=== PATIENT | male | born 1980 ===

== ENCOUNTER 2022-09-12 12:03 | Inpatient (IN) | payer MEDICAID, OTHER ==
[2022-09-12] MEDS ORDERED: ACETAMINOPHEN TAB 325 MG TAB PO PRN (12:52)
[2022-09-12] MEDS ORDERED: LORazepam 1 MG TAB PO PRN (12:52)
[2022-09-12] MEDS ORDERED: MAG HYDROX/AL HYDROX/SIMETH 30 ML CUP PO PRN (12:52)
[2022-09-12] MEDS ORDERED: MAGNESIUM HYDROXIDE 2,400 MG/10 ML CUP PO PRN (12:52)
[2022-09-12] MEDS ORDERED: LORazepam 2 MG/ML INJ IM PRN (12:55)
[2022-09-12] MEDS ORDERED: chlorproMAZINE 25 MG TAB PO PRN (12:55)
[2022-09-12] MEDS ORDERED: chlorproMAZINE 25 MG/ML 2 ML AMP IM PRN (12:56)
[2022-09-12] MEDS: DIVALPROEX 500 MG TABLET.DR PO SCH (20:57)
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
[2022-09-13] MEDS: amLODIPine 10 MG TAB PO SCH (08:29)
[2022-09-13] MEDS: DIVALPROEX 500 MG TABLET.DR PO SCH ×2 (08:29→20:11)
[2022-09-13] MEDS: NICOTINE 14MG/24HR PATCH TRANSDERM SCH (08:29)
[2022-09-13 08:37] LABS: ALT 28 U/L (4-49); AST 21 U/L (17-59); African American GFR (CKD) >90 (>60 ml/min/1.73 sqM); Albumin 4.5 g/dL (3.5-5.0); Alkaline Phosphatase 57 U/L (38-126); Anion Gap 9 mmol/L; Blood Urea Nitrogen 7 mg/dL (9-20); Calcium 9.5 mg/dL (8.4-10.2); Carbon Dioxide 31 mmol/L (22-30); Chloride 99 mmol/L (98-107); Glucose 98 mg/dL (74-99); Non-African American GFR(CKD) >90 (>60 ml/min/1.73 sqM); Potassium 3.8 mmol/L (3.5-5.1); Sodium 139 mmol/L (137-145); Total Bilirubin 0.8 mg/dL (0.2-1.3); Total Protein 7.3 g/dL (6.3-8.2)
[2022-09-13] MEDS ORDERED: ARIPiprazole 5 MG TAB PO STA (10:14)
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
[2022-09-14] MEDS ORDERED: DIVALPROEX 500 MG TABLET.DR PO SCH (09:00)
[2022-09-14] MEDS: amLODIPine 10 MG TAB PO SCH (11:02)
[2022-09-14] MEDS: ARIPiprazole 10 MG TAB PO SCH (11:02)
[2022-09-14] MEDS: NICOTINE 14MG/24HR PATCH TRANSDERM SCH (11:03)
--- NOTE | 2022-09-14 14:14 | P.PN ---
Subjective Progress Note Date: 09/14/22 Principal diagnosis: PAST PSYCHIATRIC HISTORY: Patient states that increasing diagnosed with a polar disorder and schizophrenia. Subjective: He recalls being previously prescribed Risperdal, Geodon, trazodone, and Latuda. His home medications currently include Depakote and Wellbutrin. He states that he has been on this regimen for the past 2 months. He reports that this is his sixth inpatient psychiatric admission. He reports that he was in a crisis residential unit in [place] approximately 3 weeks ago. He is open with [facility]. He reports one prior attempts at suicide by overdose months ago. The patient says that he has a pattern of taking his medicines/doing well/stopping his medicines/doing poorly. He recently had that Wellbutrin added and then he agitated. He says that he was not manic that he was depressed but the description sounds more like negative mixed chaya. He says he slept well last night appetite is good and he is feeling less agitated. Objective: He was staying in his room but got up and came and was cooperative no agitation no aggression he denied and did not evidence any hallucinations or delusions however his eye contact is down seems a little slow in his responses and wasn't always sure he was listening to me. Assessment: He is currently off the Wellbutrin which is a good idea because of prior agitated. He is on a combination of Abilify and Depakote. He weighs 260 pounds and should be about 2500 Depakote he is on a 1500 we will grab a level and see what his level is. We may need to increase that. He is on Abilify 10 and appears quite calm. Plan: Continue current medicine get a Depakote level and increase it if it's less than 80. Objective - Vital Signs Vital signs: Vital Signs Temp 98.2 F 09/13/22 06:29 Pulse 81 09/13/22 06:29 Resp 15 09/13/22 06:29 BP 121/65 09/13/22 06:29 Pulse Ox 98 09/12/22 16:57 FiO2 - Labs CBC & Chem 7: 09/13/22 07:31
[2022-09-14] MEDS: PANTOPRAZOLE 40 MG TABLET PO SCH (18:47)
[2022-09-14] MEDS: DIVALPROEX 500 MG TABLET.DR PO SCH (21:12)
[2022-09-15] MEDS: ATORVASTATIN 20 MG TAB PO SCH (08:54)
[2022-09-15] MEDS: PANTOPRAZOLE 40 MG TABLET PO SCH ×2 (08:54→17:49)
[2022-09-15] MEDS: ARIPiprazole 10 MG TAB PO SCH (08:54)
[2022-09-15] MEDS: amLODIPine 10 MG TAB PO SCH (08:54)
--- NOTE | 2022-09-15 08:59 | P.PN ---
Subjective Progress Note Date: 09/15/22 Principal diagnosis: PAST PSYCHIATRIC HISTORY:Bipolar disorder depressed nonpsychotic Subjective: He recalls being previously prescribed Risperdal, Geodon, trazodone, and Latuda. His home medications currently include Depakote and Wellbutrin. He states that he has been on this regimen for the past 2 months. He reports that this is his sixth inpatient psychiatric admission. He reports that he was in a crisis residential unit in [place] approximately 3 weeks ago. He is open with [facility]. He reports one prior attempts at suicide by overdose months ago. The patient says that he has a pattern of taking his medicines/doing well/stopping his medicines/doing poorly. He recently had that Wellbutrin added and then he agitated. He says that he was not manic that he was depressed but the description sounds more like negative mixed chaya. He says he slept well last night appetite is good and he is feeling less agitated. Objective: The the patient was out and about he still looks sleepy most slow and seems a little confused denies any psychotic symptoms no aggression says he slept well and his appetite is good. Assessment: Patient is tolerating medicines well which have worked in the past and he is going to groups and pushing back against his illness staying out of his room better. Plan: Continue Depakote but move it all to the evening. His blood level was 100.2 which is excellent. He says in the past he has done well on Depakote. Objective - Vital Signs Vital signs: Vital Signs Temp 98.2 F 09/15/22 06:59 Pulse 82 09/15/22 06:59 Resp 16 09/15/22 06:59 BP 116/69 09/15/22 06:59 Pulse Ox 97 09/15/22 06:59 FiO2 - Labs CBC & Chem 7: 09/13/22 07:31
[2022-09-15] MEDS ORDERED: DIVALPROEX 500 MG TABLET.DR PO SCH (21:00)
[2022-09-16] MEDS: ATORVASTATIN 20 MG TAB PO SCH (08:38)
[2022-09-16] MEDS: amLODIPine 10 MG TAB PO SCH (08:38)
[2022-09-16] MEDS: ARIPiprazole 10 MG TAB PO SCH (08:38)
[2022-09-16] MEDS: PANTOPRAZOLE 40 MG TABLET PO SCH ×2 (08:38→17:35)
--- NOTE | 2022-09-16 11:25 | P.PN ---
Progress Note - Text Progress Note Date: 09/16/22 Interval History: Patient was seen wandering the hallways and was directable and agreeable to speak with film writer in the office. Currently, the patient rates his psychiatric symptoms 7 out of 10 with 10 being severe. Despite this, the patient is not reporting any suicidal or homicidal ideation, intention, and/or plan. He reports that he continues to express auditory hallucinations but they have decreased in severity. He is not reporting any visual hallucinations at this time. He denies any paranoia or other delusions. He has been adherent with his medication. He is in agreement to transition to Abilify maintena prior to discharge. The patient does report vague somatic symptoms including abdominal pain and shortness of breath. Despite this, the patient is unable to fully define or describe his symptoms. Vitals are stable. Mental Status Exam: General Appearance: Patient appears to be stated age is alert, directable, and cooperative. Behavior: Patient is calmly seated without any agitated behavior. Speech: Patient's speech is fluent and nonpressured. Mood/Affect: Mood is improving mildly, affect is congruent and blunted. Suicidality/Homicidality: Patient denies having any suicidal or homicidal ideation intent or plan. Perceptions: Patient denies any visual hallucinations however he endorses auditory hallucinations at baseline. Though content/process: Somatic symptoms endorsed. Very concrete. Memory and concentration: AOX3, grossly intact for the purposes of this session Judgment and insight: Fair Vital Signs Temp 98 F 09/16/22 06:52 Pulse 77 09/16/22 06:52 Resp 14 09/16/22 06:52 BP 119/69 09/16/22 06:52 Pulse Ox 97 09/15/22 06:59 FiO2 Intake & Output 09/15/22 09/16/22 09/16/22 18:59 06:59 18:59 Weight 115.5 kg Assessment Schizoaffective disorder, bipolar type Plan: -Patient continues to meet criteria for inpatient psychiatric admission for symptom stabilization and safety. Patient has signed adult voluntary form and medication consent and was placed in patient's chart. -Medications: Increase Abilify to 15 mg by mouth daily for schizoaffective disorder. We will administer Abilify maintena tomorrow. Decrease Depakote to 1250 mg by mouth at bedtime for mood stabilization due to mildly supratherapeutic Depakote level. -When necessary Ativan and Thorazine for agitation/aggression. -SW on board for discharge planning. Encouraged the patient to participate in milieu.
[2022-09-16] MEDS: DIVALPROEX 500 MG TABLET.DR PO SCH (21:25)
[2022-09-16] MEDS: DIVALPROEX 250 MG TABLET.DR PO SCH (21:25)
[2022-09-17] MEDS: amLODIPine 10 MG TAB PO SCH (08:40)
[2022-09-17] MEDS: ATORVASTATIN 20 MG TAB PO SCH (08:40)
[2022-09-17] MEDS: PANTOPRAZOLE 40 MG TABLET PO SCH ×2 (08:40→18:44)
[2022-09-17] MEDS ORDERED: ARIPiprazole 15 MG TAB PO SCH (09:00)
[2022-09-17] MEDS ORDERED: ARIPiprazole IM 400 MG VIAL (NO COST) PHARMACY STOCK IM ONE ×2 (10:00)
[2022-09-17] MEDS ORDERED: ARIPiprazole IM SYRINGE 400 MG (NO CHARGE) PHARMACY STOCK IM ONE (10:00)
--- NOTE | 2022-09-17 10:58 | P.PN ---
Progress Note - Text Progress Note Date: 09/17/22 Interval History: Patient was seen wandering the hallways and was directable and agreeable to speak with investigative writer in the office. Currently, the patient is not reporting any suicidal or homicidal ideation, intention, and/or plan. He is currently denying any current auditory hallucinations. He reports mild visual hallucinations in the form of shapes. He is denying any paranoia or other delusions. He has been adherent with his medication and is not reporting any significant side effects. The patient reports no issues regarding his sleep or his appetite. He is in agreement to the transition to a long-acting Abilify maintena today. Mental Status Exam: General Appearance: Patient appears to be stated age is alert, directable, and cooperative. Behavior: Patient is calmly seated without any agitated behavior. Speech: Patient's speech is fluent and nonpressured. Mood/Affect: Mood is improving mildly, affect is congruent and blunted. Suicidality/Homicidality: Patient denies having any suicidal or homicidal ideation intent or plan. Perceptions: Patient reports visual hallucinations are denies any auditory hallucinations. Though content/process: Viola. No delusional thought content endorsed today. Memory and concentration: AOX3, grossly intact for the purposes of this session Judgment and insight: Fair Vital Signs Temp 97.7 F 09/17/22 06:00 Pulse 73 09/17/22 06:00 Resp 16 09/17/22 06:00 BP 120/76 09/17/22 06:00 Pulse Ox 99 09/17/22 06:00 FiO2 Assessment Schizoaffective disorder, bipolar type Plan: -Patient continues to meet criteria for inpatient psychiatric admission for symptom stabilization and safety. Patient has signed adult voluntary form and medication consent and was placed in patient's chart. -Medications: Increase Abilify to 20 mg by mouth daily for schizoaffective disorder. We will administer Abilify maintena 400 mg IM today. Depakote 1250 mg by mouth at bedtime for mood stabilization due to mildly supratherapeutic Depakote level. -When necessary Ativan and Thorazine for agitation/aggression. -SW on board for discharge planning. Encouraged the patient to participate in milieu.
[2022-09-17] MEDS: DIVALPROEX 500 MG TABLET.DR PO SCH (20:55)
[2022-09-17] MEDS: DIVALPROEX 250 MG TABLET.DR PO SCH (20:55)
[2022-09-18 06:31] VITALS: BP 114/73; PULSE 70; RESP 15; TEMP 98.1
[2022-09-18] MEDS: ATORVASTATIN 20 MG TAB PO SCH (08:50)
[2022-09-18] MEDS: PANTOPRAZOLE 40 MG TABLET PO SCH (08:50)
[2022-09-18] MEDS: amLODIPine 10 MG TAB PO SCH (08:50)
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
== END 2022-09-18 13:15 | disposition home or self-care (01) | DRG 750 ==
LOC: 3MHU 16:33
PROVIDERS: ADMIT Psychiatry & Neurology Psychiatry; ATTEND Psychiatry & Neurology Psychiatry
DX: F25.0 Schizoaffective disorder, bipolar type (principal); R45.850 Homicidal ideations; R45.851 Suicidal ideations; I10 Essential (primary) hypertension; E78.00 Pure hypercholesterolemia, unspecified; F43.10 Post-traumatic stress disorder, unspecified; F41.9 Anxiety disorder, unspecified; Z79.899 Other long term (current) drug therapy; Z91.51 Personal history of suicidal behavior; Z56.0 Unemployment, unspecified; Z88.5 Allergy status to narcotic agent; Z88.8 Allergy status to other drugs, medicaments and biological substances; Z71.41 Alcohol abuse counseling and surveillance of alcoholic; Z71.51 Drug abuse counseling and surveillance of drug abuser
CPT/HCPCS: 80053; 80164; 84443